=== PATIENT | male | born 1955 | race Caucasian/White ===

== ENCOUNTER 2024-05-25 20:16 | Inpatient (IN) | payer MEDICARE ==
[~2024-05-25] VITALS: Ht 170.2 cm; Wt 87.5 kg
[2024-05-25] MEDS: MESSAGE TO NURSING IV ONE ×3 (20:00→23:35)
[2024-05-25] MEDS ORDERED: heparin 25,000 UNIT/250ml bag 250 ML IV PRN (20:30)
[2024-05-25] MEDS: heparin 25,000 UNIT/250ml bag 250 ML IV PRN (20:49)
[2024-05-25] MEDS ORDERED: KEP500T PO (20:54)
[2024-05-25] MEDS ORDERED: OMEP20TA23 PO (20:54)
[2024-05-25 21:02] LABS: BASOPHILS # (AUTO) 0.1 X10'3 (0-0.2); BASOPHILS % (AUTO) 0.6 % (0-1); EOSINOPHILS # (AUTO) 0.2 X10'3 (0-0.9); EOSINOPHILS % (AUTO) 1.8 % (0-6); HEMATOCRIT 43.9 % (42.0-52.0); HEMOGLOBIN 14.8 g/dl (14.0-17.9); LYMPHOCYTES # (AUTO) 3.2 X10'3 (1.1-4.8); LYMPHOCYTES % (AUTO) 31.7 % (21-51); MEAN CORPUSCULAR HEMOGLOBIN 31.7 PG (27.0-31.0); MEAN CORPUSCULAR HGB CONC 33.7 g/dL (33.0-36.5); MEAN PLATELET VOLUME 9.2 FL (7.4-10.4); MONOCYTES # (AUTO) 0.7 X10'3 (0-0.9); MONOCYTES % (AUTO) 6.7 % (2-12); NEUTROPHILS % (AUTO) 59.2 % (42-75); PLATELET COUNT 155 X10'3 (140-440); RED BLOOD COUNT 4.67 X10'6 (4.70-6.10); RED CELL DISTRIBUTION WIDTH 14.4 % (11.5-14.5); WHITE BLOOD COUNT 10.1 X10'3 (4.5-11.0)
[2024-05-25 21:10] LABS: APTT 36 SECONDS (22-32)
[2024-05-25 21:18] LABS: ALBUMIN 3.7 G/DL (3.4-5.0); ANION GAP 4 (8-16); BLOOD UREA NITROGEN 18 MG/DL (7-18); BUN/CREATININE RATIO 18.8 (10.0-20.0); CALCIUM 8.7 MG/DL (8.5-10.1); CHLORIDE 107 MMOL/L (99-107); CREATININE 0.96 MG/DL (0.60-1.10); GLUCOSE 100 MG/DL (70-104); POTASSIUM 3.8 MMOL/L (3.5-5.1); PRO BRAIN NATRIURETIC PEPTIDE 242 PG/ML (0-125); SODIUM 140 MMOL/L (135-145); TOTAL CARBON DIOXIDE 29.1 MMOL/L (24-32); eCRCL 70 ML/MIN; eGFR 78 ML/MIN
[2024-05-25] MEDS: levetiracetam 250mg tablet PO ONE (21:56)
[2024-05-25] MEDS ORDERED: magnesium hydroxide 30ml (MOM) UD suspension PO PRN (22:15)
[2024-05-25] MEDS ORDERED: potassium Cl 40MEQ/1/2NS 520ml 520 ML IV PRN (22:15)
[2024-05-25] MEDS ORDERED: potassium Cl 20 mEq SR tablet PO PRN ×2 (22:15)
[2024-05-25] MEDS ORDERED: ondansetron/PF 4mg/2ml inj IV PRN (22:15)
[2024-05-25] MEDS ORDERED: magnesium sulf-water 4G/100mL 100 ML IV PRN (22:15)
[2024-05-25] MEDS ORDERED: HYDROcodone/acetaminophen 10/325mg tab PO PRN (22:15)
[2024-05-25] MEDS ORDERED: acetaminophen 325mg tablet PO PRN (22:15)
[2024-05-25] MEDS ORDERED: magnesium Cl slow-release 64mg tablet PO PRN (22:15)
[2024-05-25] MEDS ORDERED: mag hydrox/Alum hydrox/simeth 30ml oral suspension PO PRN (22:15)
[2024-05-25] MEDS ORDERED: HYDROcodone/acetaminophen 5mg/325mg tablet PO PRN (22:15)
[2024-05-25] MEDS ORDERED: magnesium sulf-water 2g/50mL 50 ML IV PRN (22:15)
[2024-05-25] MEDS: heparin 10,000 units/1 ML INJ IV PRN (23:32)
[2024-05-25] MEDS ORDERED: nitroGLYCERIN 0.4mg SUBLingual tab SL PRN (23:45)
[2024-05-26] MEDS: aspirin 81mg tab.chew PO ONE (00:15)
[2024-05-26] MEDS: lisinopril 10 MG tablet PO SCH (00:16)
[2024-05-26] MEDS: atorvastatin 20mg tablet PO SCH (00:16)
[2024-05-26 02:16] LABS: BASOPHILS # (AUTO) 0.1 X10'3 (0-0.2); BASOPHILS % (AUTO) 0.5 % (0-1); EOSINOPHILS # (AUTO) 0.3 X10'3 (0-0.9); EOSINOPHILS % (AUTO) 2.6 % (0-6); HEMATOCRIT 43.5 % (42.0-52.0); HEMOGLOBIN 14.7 g/dl (14.0-17.9); LYMPHOCYTES # (AUTO) 3.6 X10'3 (1.1-4.8); LYMPHOCYTES % (AUTO) 32.1 % (21-51); MEAN CORPUSCULAR HEMOGLOBIN 31.8 PG (27.0-31.0); MEAN CORPUSCULAR HGB CONC 33.7 g/dL (33.0-36.5); MEAN CORPUSCULAR VOLUME 94.2 FL (78-98); MEAN PLATELET VOLUME 9.1 FL (7.4-10.4); MONOCYTES # (AUTO) 0.9 X10'3 (0-0.9); MONOCYTES % (AUTO) 7.8 % (2-12); NEUTROPHILS # (AUTO) 6.4 X10'3 (1.8-7.7); PLATELET COUNT 151 X10'3 (140-440); RED BLOOD COUNT 4.61 X10'6 (4.70-6.10); RED CELL DISTRIBUTION WIDTH 14.2 % (11.5-14.5); WHITE BLOOD COUNT 11.3 X10'3 (4.5-11.0)
[2024-05-26 03:30] VITALS: BP 127/77; PULSE 63; TEMP 98.6; O2SAT 97
[2024-05-26 05:54] LABS: ALANINE AMINOTRANSFERASE 39 U/L (12-78); ALBUMIN 3.3 G/DL (3.4-5.0); ALKALINE PHOSPHATASE 75 IU/L (46-116); ANION GAP 5 (8-16); ASPARTATE AMINO TRANSFERASE 29 U/L (10-37); BILIRUBIN,TOTAL 0.8 MG/DL (0.1-1.0); BLOOD UREA NITROGEN 17 MG/DL (7-18); BUN/CREATININE RATIO 16.3 (10.0-20.0); CALCIUM 8.5 MG/DL (8.5-10.1); CHLORIDE 106 MMOL/L (99-107); CREATININE 1.04 MG/DL (0.60-1.10); GLUCOSE 172 MG/DL (70-104); POTASSIUM 3.6 MMOL/L (3.5-5.1); SODIUM 139 MMOL/L (135-145); TOTAL CARBON DIOXIDE 27.6 MMOL/L (24-32); TOTAL PROTEIN 6.5 G/DL (6.4-8.2); eCRCL 64 ML/MIN; eGFR 71 ML/MIN
[2024-05-26 05:58] LABS: MAGNESIUM 1.9 MG/DL (1.5-2.4)
[2024-05-26 06:00] VITALS: BP 119/69; PULSE 85; RESP 14; TEMP 98.1; O2SAT 96
[2024-05-26] MEDS: MESSAGE TO NURSING IV ONE ×2 (07:00→12:17)
[2024-05-26] MEDS: K and/or MAG REPLACEMENT MC SCH (08:00)
[2024-05-26] MEDS: docusate sod 100mg capsule PO SCH (08:00)
[2024-05-26] MEDS: levetiracetam 250mg tablet PO SCH (08:55)
[2024-05-26] MEDS: carvedilol 6.25mg tablet PO SCH (08:55)
[2024-05-26] MEDS: aspirin 81mg tab.chew PO SCH (08:56)
[2024-05-26] MEDS: pantoprazole 40mg Tablet.DR PO SCH (08:58)
[2024-05-26 11:00] VITALS: BP 111/61; PULSE 59; RESP 18; TEMP 98.1; O2SAT 98
[2024-05-26] MEDS: nicotine 21mg patch - 24 hr TD SCH (11:15)
[2024-05-26 15:00] VITALS: BP 110/64; PULSE 59; RESP 13; O2SAT 96
[2024-05-26 18:00] VITALS: BP 127/61; PULSE 63; RESP 16; TEMP 97.8; O2SAT 97
[2024-05-26 22:00] VITALS: BP 141/45; PULSE 64; RESP 18; TEMP 97.8; O2SAT 97
[2024-05-27 01:50] LABS: BASOPHILS # (AUTO) 0.1 X10'3 (0-0.2); BASOPHILS % (AUTO) 0.9 % (0-1); EOSINOPHILS # (AUTO) 0.3 X10'3 (0-0.9); EOSINOPHILS % (AUTO) 3.4 % (0-6); HEMOGLOBIN 14.6 g/dl (14.0-17.9); LYMPHOCYTES # (AUTO) 3.5 X10'3 (1.1-4.8); LYMPHOCYTES % (AUTO) 39.5 % (21-51); MEAN CORPUSCULAR HEMOGLOBIN 31.8 PG (27.0-31.0); MEAN CORPUSCULAR VOLUME 93.5 FL (78-98); MEAN PLATELET VOLUME 9.1 FL (7.4-10.4); MONOCYTES # (AUTO) 0.6 X10'3 (0-0.9); MONOCYTES % (AUTO) 7.3 % (2-12); NEUTROPHILS # (AUTO) 4.3 X10'3 (1.8-7.7); NEUTROPHILS % (AUTO) 48.9 % (42-75); PLATELET COUNT 136 X10'3 (140-440); RED CELL DISTRIBUTION WIDTH 14.1 % (11.5-14.5); WHITE BLOOD COUNT 8.8 X10'3 (4.5-11.0)
[2024-05-27 02:00] VITALS: BP 104/66; PULSE 59; RESP 20; TEMP 97.8; O2SAT 96
[2024-05-27] MEDS: MESSAGE TO NURSING IV ONE ×2 (02:45→10:29)
[2024-05-27 06:00] VITALS: BP 96/60; PULSE 57; RESP 19; TEMP 98; O2SAT 96
[2024-05-27 09:54] LABS: ALANINE AMINOTRANSFERASE 40 U/L (12-78); ALBUMIN 3.4 G/DL (3.4-5.0); ALKALINE PHOSPHATASE 74 IU/L (46-116); ANION GAP 10 (8-16); ASPARTATE AMINO TRANSFERASE 27 U/L (10-37); BILIRUBIN,TOTAL 0.9 MG/DL (0.1-1.0); BLOOD UREA NITROGEN 18 MG/DL (7-18); BUN/CREATININE RATIO 18.4 (10.0-20.0); CALCIUM 8.6 MG/DL (8.5-10.1); CHLORIDE 105 MMOL/L (99-107); CREATININE 0.98 MG/DL (0.60-1.10); GLUCOSE 109 MG/DL (70-104); MAGNESIUM 1.9 MG/DL (1.5-2.4); POTASSIUM 3.9 MMOL/L (3.5-5.1); SODIUM 140 MMOL/L (135-145); TOTAL CARBON DIOXIDE 25.3 MMOL/L (24-32); TOTAL PROTEIN 6.7 G/DL (6.4-8.2); eCRCL 68 ML/MIN; eGFR 76 ML/MIN
[2024-05-27 11:00] VITALS: BP 100/55; PULSE 56; RESP 14; TEMP 97.8; O2SAT 97
[2024-05-27] MEDS ORDERED: verapamil 2.5 mg/ml inj IV ONE (11:27)
[2024-05-27] MEDS ORDERED: LIDOcaine 1% (10mg/ml) 2ml vial ONE (11:27)
[2024-05-27] MEDS ORDERED: nitroGLYCERIN 500mcg/5mL D5W 5 ML IV ONE ×2 (11:28→13:13)
[2024-05-27] MEDS ORDERED: midazolam 1 mg/ML 2ml injection ONE (11:28)
[2024-05-27] MEDS ORDERED: iohexol 350 MG/ML 50ML vial IV ONE (11:28)
[2024-05-27] MEDS ORDERED: fentaNYL/PF 50MCG/1 ML 2ML syringe ONE (11:28)
[2024-05-27] MEDS ORDERED: iohexol 350MG/ML 100ml bottle IV ONE ×2 (11:28→12:53)
[2024-05-27] MEDS ORDERED: heparin 1,000unit/ml 10ml vial 10 ML ONE (11:28)
[2024-05-27] MEDS ORDERED: clopidogrel 300mg tablet ONE (13:17)
[2024-05-27] MEDS ORDERED: HYDROcodone/acetaminophen 10/325mg tab PO PRN (14:15)
[2024-05-27] MEDS ORDERED: ondansetron/PF 4mg/2ml inj IV PRN (14:15)
[2024-05-27] MEDS ORDERED: proCHLORperazine 10 MG/2 ml inj IV PRN (14:15)
[2024-05-27] MEDS ORDERED: OXAZEpam 15mg capsule PO PRN (14:15)
[2024-05-27] MEDS ORDERED: normal saline 1000ml 1,000 ML IV SCH (14:15)
[2024-05-27] MEDS ORDERED: HYDROcodone/acetaminophen 5mg/325mg tablet PO PRN (14:15)
[2024-05-27 15:00] VITALS: BP 122/96; PULSE 51; RESP 20; TEMP 98.1; O2SAT 98
[2024-05-27 15:56] LABS: CHOLESTEROL 124 MG/DL (0-200); HDL CHOLESTEROL 63 MG/DL (35-60); LDL CHOLESTEROL 59 MG/DL (50-100); TRIGLYCERIDES 22 MG/DL (20-135)
[2024-05-27 18:00] VITALS: BP 112/64; PULSE 51; RESP 18; TEMP 98.1; O2SAT 97
[2024-05-27 22:00] VITALS: BP 95/42; PULSE 52; RESP 18; TEMP 98; O2SAT 97
[2024-05-28 02:00] VITALS: BP 98/59; PULSE 58; RESP 16; TEMP 97.6; O2SAT 98
[2024-05-28 06:05] LABS: BASOPHILS # (AUTO) 0.1 X10'3 (0-0.2); BASOPHILS % (AUTO) 0.8 % (0-1); EOSINOPHILS # (AUTO) 0.3 X10'3 (0-0.9); EOSINOPHILS % (AUTO) 3.6 % (0-6); HEMATOCRIT 40.8 % (42.0-52.0); HEMOGLOBIN 13.9 g/dl (14.0-17.9); LYMPHOCYTES # (AUTO) 2.8 X10'3 (1.1-4.8); LYMPHOCYTES % (AUTO) 37.1 % (21-51); MEAN CORPUSCULAR HGB CONC 34.1 g/dL (33.0-36.5); MEAN CORPUSCULAR VOLUME 93.8 FL (78-98); MEAN PLATELET VOLUME 9.8 FL (7.4-10.4); MONOCYTES # (AUTO) 0.6 X10'3 (0-0.9); NEUTROPHILS # (AUTO) 3.8 X10'3 (1.8-7.7); NEUTROPHILS % (AUTO) 50.5 % (42-75); PLATELET COUNT 123 X10'3 (140-440); RED BLOOD COUNT 4.36 X10'6 (4.70-6.10); RED CELL DISTRIBUTION WIDTH 14.1 % (11.5-14.5); WHITE BLOOD COUNT 7.6 X10'3 (4.5-11.0)
[2024-05-28 06:15] LABS: ALANINE AMINOTRANSFERASE 36 U/L (12-78); ALBUMIN 3.1 G/DL (3.4-5.0); ALKALINE PHOSPHATASE 72 IU/L (46-116); ANION GAP 5 (8-16); ASPARTATE AMINO TRANSFERASE 24 U/L (10-37); BILIRUBIN,TOTAL 0.7 MG/DL (0.1-1.0); BLOOD UREA NITROGEN 18 MG/DL (7-18); BUN/CREATININE RATIO 19.1 (10.0-20.0); CALCIUM 8.3 MG/DL (8.5-10.1); CHLORIDE 108 MMOL/L (99-107); CREATININE 0.94 MG/DL (0.60-1.10); GLUCOSE 95 MG/DL (70-104); MAGNESIUM 1.9 MG/DL (1.5-2.4); POTASSIUM 3.7 MMOL/L (3.5-5.1); SODIUM 139 MMOL/L (135-145); TOTAL PROTEIN 6.2 G/DL (6.4-8.2); eCRCL 71 ML/MIN; eGFR 80 ML/MIN
[2024-05-28] MEDS: clopidogrel 75mg tablet PO SCH (08:37)
[2024-05-28] MEDS: aspirin 81mg, enteric-coated 1 TAB TABLET.DR PO SCH (10:04)
[2024-05-28 10:08] VITALS: BP_SYST 109; PULSE 51
[2024-05-28] MEDS ORDERED: ATOR20TA66 PO (12:45)
[2024-05-28] MEDS ORDERED: CLOP75TA34 PO (12:45)
[2024-05-28] MEDS ORDERED: ASPI-1071 PO (12:45)
== END 2024-05-28 13:15 | disposition home or self-care (01) | DRG 322 ==
LOC: ER 20:17 → ED HOLD 22:19 → PCU 3S 05-26 03:35
PROVIDERS: ADMIT Internal Medicine Critical Care Medicine; ATTEND Internal Medicine
PROC: 027034Z Dilation of Coronary Artery, One Artery with Drug-eluting Intraluminal Device, Percutaneous Approach (ICD-10-PCS; principal; 2024-05-27)
PROC: 4A023N7 Measurement of Cardiac Sampling and Pressure, Left Heart, Percutaneous Approach (ICD-10-PCS; 2024-05-27)
PROC: B2111ZZ Fluoroscopy of Multiple Coronary Arteries using Low Osmolar Contrast (ICD-10-PCS; 2024-05-27)
PROC: B2151ZZ Fluoroscopy of Left Heart using Low Osmolar Contrast (ICD-10-PCS; 2024-05-27)
DX: I21.4 Non-ST elevation (NSTEMI) myocardial infarction (principal); K70.10 Alcoholic hepatitis without ascites; F17.210 Nicotine dependence, cigarettes, uncomplicated; K76.0 Fatty (change of) liver, not elsewhere classified; K70.9 Alcoholic liver disease, unspecified; R56.9 Unspecified convulsions; Z96.642 Presence of left artificial hip joint; Z88.5 Allergy status to narcotic agent; I25.2 Old myocardial infarction; Z82.49 Family history of ischemic heart disease and other diseases of the circulatory system
CPT/HCPCS: 93306; 93458; 99291; C9600; 36415; 76937; 80048; 80053; 80061; 83735; 83880; 84484; 85025; 85347; 85730; 87081; 93005; 99152; 99153; A6258; C1725; C1751; C1769; C1874; C1894; G0378; J1644; J2250; J3010; J3490; J7030; Q9967